=== PATIENT | female | born 2000 | race Caucasian/White ===

== ENCOUNTER 2020-06-02 14:16 | Outpatient (CLI) | payer BC, SELFPAY | END 2020-06-02 14:17 | disposition home or self-care (01) | LOC: ANHCOVIDVC 14:16 | PROVIDERS: PCP Internal Medicine | DX: Z23 Encounter for immunization (principal) | CPT/HCPCS: 0001A; 91300 ==

== ENCOUNTER 2020-06-23 14:32 | Outpatient (CLI) | payer BC, SELFPAY | END 2020-06-23 14:33 | disposition home or self-care (01) | LOC: ANHCOVIDVC 14:32 | PROVIDERS: PCP Internal Medicine | DX: Z23 Encounter for immunization (principal) | CPT/HCPCS: 0002A; 91300 ==

== ENCOUNTER 2023-04-05 11:00 | Outpatient (CLI) | payer BC, SELFPAY ==
--- NOTE | ~2023-04-05 | XR_ITS ---
Cervical Spine: AP, lateral, open-mouth views Clinical History: Pain Findings: There is reversal normal cervical lordosis.. The vertebral bodies and posterior elements a ppear intact. The intervertebral disc spaces are well maintained. Pre-vertebral soft tissues are unr emarkable. Impression: Mild reversal of the normal cervical lordosis, otherwise unremarkable exam. Reviewed, dictated and finalized at [facility]. [place] CLERK Impression: Mild reversal of the normal cervical lordosis, otherwise unremarkable exam.
== END 2023-04-05 11:01 ==
PROVIDERS: PCP Clinical Nurse Specialist; Visit Provider Clinical Nurse Specialist
DX: M54.2 Cervicalgia (principal)
CPT/HCPCS: 72040

== ENCOUNTER 2023-04-11 16:39 | Outpatient (CLI) | payer BC, SELFPAY ==
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
== END 2023-04-11 16:40 | disposition home or self-care (01) ==
LOC: ANHIMG 16:40
PROVIDERS: PCP Clinical Nurse Specialist; Visit Provider Clinical Nurse Specialist
DX: R51.9 Headache, unspecified (principal); V89.2XXA Person injured in unspecified motor-vehicle accident, traffic, initial encounter
CPT/HCPCS: 70450